=== PATIENT | female | born 1965 | race Caucasian/White ===

== ENCOUNTER → 2024-03-15 | Outpatient (CLI) | payer OTHER | END | disposition home or self-care (01) | LOC: RAD 11:55 | PROVIDERS: ATTEND Surgery | DX: D37.4 Neoplasm of uncertain behavior of colon (principal); R19.4 Change in bowel habit; R19.5 Other fecal abnormalities ==

== ENCOUNTER 2024-03-24 12:15 | Inpatient (IN) | payer OTHER ==
[2024-03-23 17:11] LABS: INR 1.18; PROTHROMBIN TIME 12.7 SECONDS (9.0-11.5)
[2024-03-30] MEDS ORDERED: BUPIVACAINE HCL/Mpf 0.5% 10ML VIAL ONE (10:10)
[2024-03-30] MEDS ORDERED: LIDOCAINE HCL 1%/EPINEPHRINE 20ML VIAL IJ ONE ×2 (10:10→10:45)
[2024-03-30] MEDS ORDERED: CEFTRIAXONE SODIUM 2,000 MG VIAL ONE (10:11)
[2024-03-30] MEDS ORDERED: METRONIDAZOLE/SODIUM CHLORIDE 500 MG/100 ML PIGGYBACK IV ONE ×4 (10:11→16:24)
[2024-03-30] MEDS ORDERED: PHYTONADIONE 10 MG/ML AMPUL ONE (10:27)
[2024-03-30] MEDS ORDERED: CEFTRIAXONE SODIUM 2,000 MG VIAL IV ONE (10:45)
[2024-03-30] MEDS ORDERED: PHYTONADIONE 10 MG/ML AMPUL IV ONE (10:45)
[2024-03-30] MEDS ORDERED: BUPIVACAINE HCL/PF 0.25% 30ML VIAL InF ONE (10:45)
[2024-03-30] MEDS ORDERED: HYOSCYAMINE SULFATE 0.125 MG TAB.SUBL SL SCH (13:00)
[2024-03-30] MEDS ORDERED: DEXTROSE 50 % IN WATER 0.5 G/ML DISP.SYRIN IV PRN (13:00)
[2024-03-30] MEDS ORDERED: OxyCODONE HCL 5 MG TABLET (ROXICODONE) PO PRN (13:00)
[2024-03-30] MEDS ORDERED: MORPHINE SULFATE 4 MG/ML CARTRIDGE IV PRN (13:00)
[2024-03-30] MEDS ORDERED: ONDANSETRON HCL 2 MG/ML VIAL IV PRN (13:00)
[2024-03-30] MEDS ORDERED: 0.9 % SODIUM CHLORIDE 1,000 ML IV SCH (13:00)
[2024-03-30] MEDS ORDERED: MORPHINE SULFATE 2 MG/ML CARTRIDGE IV ONE (13:45)
[2024-03-30 13:57] LABS: HEMATOCRIT 35.2 % (36.0-45.00); HEMOGLOBIN 11.9 g/dL (12.0-15.00); MEAN CELL VOLUME 90.6 fL (80.00-100.00); MEAN CORPUSCULAR HEMOGLOBIN 30.6 pg (27.00-32.0); MEAN CORPUSCULAR HGB CONC 33.7 g/dl (32.0-36.0); PLATELET COUNT 236 K/uL (150-450); RED BLOOD COUNT 3.89 M/uL (4.00-6.00); RED CELL DISTRIBUTION WIDTH 13.7 % (11.5-14.5)
[2024-03-30] MEDS ORDERED: ACETAMINOPHEN 500 MG GEL..CAP PO SCH (14:00)
[2024-03-30] MEDS ORDERED: ENALAPRILAT DIHYDRATE 1.25 MG/ML VIAL IV PRN (14:15)
[2024-03-30 14:19] LABS: ABG PH 7.353 (7.35-7.45); ABG PO2 171.8 mmHg (80-100); ABG pCO2 42.3 mmHg (35-45); BASE EXCESS -2.5 mmol/l; SaO2 99.4 %; Tco2 24.3 mmol/l
[2024-03-30 14:24] LABS: ALBUMIN 3.4 gm/dL (3.4-5.0); CALCIUM 8.5 mg/dL (8.5-10.1); CREATININE SERUM 0.69 mg/dL (0.55-1.02); GFR 86.78; MAGNESIUM 1.9 mg/dL (1.8-2.4); PHOSPHOROUS 3.4 mg/dL (2.5-4.9); POTASSIUM 4.03 mEq/L (3.5-5.1)
[2024-03-30 14:37] LABS: allen test SATISFACTORY; o2 40 %; puncture site RADIAL RIGHT
[2024-03-30] MEDS ORDERED: POLYETHYLENE GLYCOL 3350 17 GM BLIST.PACK PO SCH (17:00)
[2024-03-30] MEDS ORDERED: GABAPENTIN 300 MG CAPSULE PO SCH (17:00)
[2024-03-30] MEDS ORDERED: METRONIDAZOLE/SODIUM CHLORIDE 500 MG/100 ML PIGGYBACK IV SCH (17:00)
[2024-03-30] MEDS ORDERED: FAMOTIDINE/PF 20 MG/2 ML VIAL IV PUSH SCH (21:00)
[2024-03-30 21:14] VITALS: O2SAT 92
[2024-03-30 23:32] VITALS: O2SAT 94
[2024-03-31 00:46] VITALS: BP 112/71; O2SAT 98
[2024-03-31 08:00] VITALS: BP 130/60; O2SAT 97
[2024-03-31] MEDS ORDERED: LOSARTAN/HYDROCHLOROTHIAZIDE 1 UDTAB TABLET PO SCH (09:00)
[2024-03-31 09:17] VITALS: O2SAT 95
[2024-03-31 09:56] LABS: HEMATOCRIT 34.9 % (36.0-45.00); HEMOGLOBIN 11.6 g/dL (12.0-15.00); MEAN CELL VOLUME 90.5 fL (80.00-100.00); MEAN CORPUSCULAR HGB CONC 33.1 g/dl (32.0-36.0); PLATELET COUNT 258 K/uL (150-450); RED BLOOD COUNT 3.86 M/uL (4.00-6.00); RED CELL DISTRIBUTION WIDTH 13.3 % (11.5-14.5)
[2024-03-31 11:06] LABS: ALBUMIN 3.2 gm/dL (3.4-5.0); CALCIUM 8.3 mg/dL (8.5-10.1); CREATININE SERUM 0.7 mg/dL (0.55-1.02); GFR 85.35; MAGNESIUM 2.1 mg/dL (1.8-2.4); PHOSPHOROUS 2.3 mg/dL (2.5-4.9); POTASSIUM 4.06 mEq/L (3.5-5.1)
[2024-03-31] MEDS ORDERED: POTASSIUM PHOS,M-BASIC-D-BASIC 3 MM/ML VIAL IV NR (12:00)
[2024-03-31 15:43] VITALS: BP 103/63; O2SAT 97
[2024-03-31] MEDS ORDERED: ENOXAPARIN SODIUM 40 MG/0.4 ML SYRINGE SUBCUTANEO SCH (17:00)
[2024-03-31 18:53] VITALS: O2SAT 97
[2024-03-31 22:12] VITALS: O2SAT 97
[2024-04-01] VITALS (9 sets, daily range): BP systolic 127–140; BP diastolic 70–83; O2SAT 92–98
[2024-04-01 08:15] LABS: HEMATOCRIT 31.4 % (36.0-45.00); HEMOGLOBIN 10.9 g/dL (12.0-15.00); MEAN CELL VOLUME 88.7 fL (80.00-100.00); MEAN CORPUSCULAR HEMOGLOBIN 30.6 pg (27.00-32.0); MEAN CORPUSCULAR HGB CONC 34.6 g/dl (32.0-36.0); PLATELET COUNT 201 K/uL (150-450); RED BLOOD COUNT 3.55 M/uL (4.00-6.00); RED CELL DISTRIBUTION WIDTH 13.8 % (11.5-14.5)
[2024-04-01 08:46] LABS: CREATININE SERUM 0.7 mg/dL (0.55-1.02); GFR 85.35; MAGNESIUM 1.9 mg/dL (1.8-2.4); PHOSPHOROUS 2.1 mg/dL (2.5-4.9); POTASSIUM 3.85 mEq/L (3.5-5.1)
[2024-04-01] MEDS ORDERED: ENOXAPARIN SODIUM 40 MG/0.4 ML SYRINGE SUBCUTANEO SCH (09:00)
[2024-04-02 00:23] VITALS: BP 96/61; O2SAT 95
[2024-04-02 00:35] VITALS: O2SAT 90
[2024-04-02 03:42] VITALS: O2SAT 93
[2024-04-02 07:55] LABS: HEMATOCRIT 32.7 % (36.0-45.00); HEMOGLOBIN 11.1 g/dL (12.0-15.00); MEAN CELL VOLUME 90.4 fL (80.00-100.00); MEAN CORPUSCULAR HEMOGLOBIN 30.8 pg (27.00-32.0); MEAN CORPUSCULAR HGB CONC 34.1 g/dl (32.0-36.0); PLATELET COUNT 234 K/uL (150-450); RED BLOOD COUNT 3.62 M/uL (4.00-6.00); RED CELL DISTRIBUTION WIDTH 13.2 % (11.5-14.5)
[2024-04-02 08:19] LABS: ALBUMIN 2.9 gm/dL (3.4-5.0); BILIRUBIN TOTAL 0.44 mg/dL (0.3-1.2); CALCIUM 8.3 mg/dL (8.5-10.1); CREATININE SERUM 0.68 mg/dL (0.55-1.02); GFR 88.26; GLOBULINA 3.2 G/DL (2.4-3.5); POTASSIUM 4.03 mEq/L (3.5-5.1); TOTAL PROTEIN 6.1 gm/dL (6.4-8.2)
[2024-04-02 09:11] VITALS: BP 142/81; O2SAT 95
[2024-04-02 09:17] VITALS: O2SAT 97
[2024-04-02] MEDS ORDERED: INTESTINEX680 M1 PO ×2 (09:56→10:05)
[2024-04-02] MEDS ORDERED: TYLENOL325 MG PO (09:58)
[2024-04-02] MEDS ORDERED: LEVSIN0.125 MG PO (09:58)
[2024-04-02] MEDS ORDERED: LEVSIN/SL0.125 MG SL (10:05)
== END 2024-04-02 14:06 | disposition home or self-care (01) | DRG 331 ==
LOC: O/R 03-30 07:35 → SURH 03-30 12:15
PROVIDERS: Internal Medicine Geriatric Medicine; Surgery; ADMIT Surgery; ATTEND Surgery
PROC: 07BC4ZX Excision of Pelvis Lymphatic, Percutaneous Endoscopic Approach, Diagnostic (ICD-10-PCS; 2024-03-30)
PROC: 4A12X4Z Monitoring of Cardiac Electrical Activity, External Approach (ICD-10-PCS; 2024-03-30)
PROC: 0DTF4ZZ Resection of Right Large Intestine, Percutaneous Endoscopic Approach (ICD-10-PCS; principal; 2024-03-30 17:30)
DX: D37.4 Neoplasm of uncertain behavior of colon (principal); I11.9 Hypertensive heart disease without heart failure

== ENCOUNTER 2024-03-28 07:12 | Outpatient (CLI) | payer OTHER ==
[2024-03-28 08:11] LABS: INR 1.17; PROTHROMBIN TIME 12.6 SECONDS (9.0-11.5)
[2024-03-28 08:54] LABS: COL EPI 79 SECONDS (82-175)
== END 2024-03-28 07:20 | disposition home or self-care (01) ==
LOC: LAB 07:12
PROVIDERS: ATTEND Internal Medicine Geriatric Medicine
DX: D68.9 Coagulation defect, unspecified (principal)